=== PATIENT | male | born 1990 | race African-American/Black ===

== ENCOUNTER 2018-02-09 08:55 | Emergency (ER) | payer OTHER ==
[~2018-02-09] VITALS: Ht 172.7 cm; Wt 81.1 kg
[2018-02-09 09:00] VITALS: TEMP 36.9; Ht 172.7 cm; Wt 81.1 kg
[2018-02-09] MEDS ORDERED: IBUP-103 PO (09:11)
--- NOTE | 2018-02-09 10:14 | DIAGNOSTIC IMAGING REPORT ---
R KNEE 3 VIEWS CLINICAL HISTORY: Bilateral knee pain. COMPARISON: None FINDINGS: Alignment of the right knee is anatomic. There is no acute fracture or suspicious lesion. There is minimal spurring of the superior patella at the insertion of the quadriceps. There is no joint effusion. IMPRESSION: 1. No acute fracture or joint effusion of the right knee. 2. Minimal superior patellar spurring at the insertion of the quadriceps. Electronically signed by: Jose A Villegas M.D. 02/09/2018 10:13 AM Dictated Date/Time: 02/09/2018 10:12 AM
--- NOTE | 2018-02-09 10:15 | DIAGNOSTIC IMAGING REPORT ---
L KNEE 3 VIEWS CLINICAL HISTORY: Bilateral knee pain. COMPARISON: None FINDINGS: Alignment of the left knee is anatomic. There is no fracture or suspicious lesion. The joint spaces are preserved. There is minimal osteophytosis of the left knee and minimal superior patellar spurring at the insertion of the quadriceps. No joint effusion is present. IMPRESSION: 1. No acute fracture. 2. Preserved joint spaces left knee with minimal medial compartment osteophytosis. Electronically signed by: Jose A Villegas M.D. 02/09/2018 10:14 AM Dictated Date/Time: 02/09/2018 10:13 AM
[2018-02-09 10:34] VITALS: BP 149/73; PULSE 74; O2SAT 100
--- NOTE | 2018-02-09 15:35 | EMERGENCY ROOM VISIT NOTE ---
History First contact with patient: 09:08 Chief Complaint: KNEEPAIN Stated Complaint: KNEE HURTS History of Present Illness The patient is a 27 year old male who presents to the Emergency Room with complaints of bilateral knee pain. She reports the pain is mostly over the inner aspect of both knees. 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 The patient reports that he does spend a lot of time kneeling, squatting and crawling on his knees. The patient reports that he was seen by a PCP in the past that diagnosed him with tendinitis. He denies any specific injuries to his knees in the past. He rates his discomfort a 6 out of 10. He denies any instability, clicking or locking of the knees. Review of Systems 10 system review was performed and was negative except for pertinent positives and negatives as indicated in history of present illness Past Medical/Surgical History Medical Problems: (1) Asthma (2) Pain, dental Family History FH: cancer FH: diabetes mellitus FH: heart disease FH: hypertension FH: kidney disease Social History Smoking Status: Current Every Day Smoker Alcohol Use: occasionally Marital Status: Occupation Status: employed Current/Historical Medications Scheduled Ibuprofen Tab (Advil), 400-600 MG PO Q6H Physical Exam Vital Signs Date Time Temp Pulse Resp B/P (MAP) Pulse Ox O2 Delivery O2 Flow Rate FiO2 02/09/18 10:34 74 18 149/73 100 Room Air 02/09/18 09:00 36.9 93 18 129/80 98 Room Air Physical Exam CONSTITUTIONAL: Healthy and well nourished. Alert and oriented X 3 with positive affect. Patient does not appear in any acute distress. HEENT: Normocephalic, atraumatic. Pupils equal, round and reactive. NECK: Full active range of motion without discomfort. MUSCULOSKELETAL: Examination of bilateral knees does not show any areas of edema , ecchymosis or skin conditions. The patient has tenderness to palpation over bilateral pedis anserine regions, and through the posterior hamstrings. The patient has no focal tenderness to palpation over the medial or lateral joint line, peripatellar region, quadriceps/patellar tendons or popliteal space. No joint effusion noted. The patient has full active flexion and extension without discomfort. Ligamentous exam is normal. Pedal pulses are intact. INTEGUMENTARY: No rash or other significant dermatologic conditions noted. NEUROLOGIC: No focal neurologic deficits noted. Medical Decision & Procedures ER Provider Diagnostic Interpretation: My interpretation of bilateral knee x-rays shows mild degenerative changes as discussed below, otherwise no other acute fractures, dislocation or joint effusion. Radiologist reports are as follows: L KNEE 3 VIEWS CLINICAL HISTORY: Bilateral knee pain. COMPARISON: None FINDINGS: Alignment of the left knee is anatomic. There is no fracture or suspicious lesion. The joint spaces are preserved. There is minimal osteophytosis of the left knee and minimal superior patellar spurring at the insertion of the quadriceps. No joint effusion is present. IMPRESSION: 1. No acute fracture. 2. Preserved joint spaces left knee with minimal medial compartment osteophytosis. R KNEE 3 VIEWS CLINICAL HISTORY: Bilateral knee pain. COMPARISON: None FINDINGS: Alignment of the right knee is anatomic. There is no acute fracture or suspicious lesion. There is minimal spurring of the superior patella at the insertion of the quadriceps. There is no joint effusion. IMPRESSION: 1. No acute fracture or joint effusion of the right knee. 2. Minimal superior patellar spurring at the insertion of the quadriceps. ED Course Patient history and physical exam were performed. Nurse's notes were reviewed. Vital signs were reviewed and were normal. The patient refused any analgesics. X-rays of bilateral knees were normal. The patient was advised that his clinical exams are consistent with bilateral knee tendinitis. He was encouraged to intermittently apply ice to areas of discomfort. The patient refused crutches. He was encouraged to follow-up with his PCP or orthopedics for further reevaluation and management. The patient was happy with plan of care, voiced understanding of all discharge instructions, and rated his discomfort a 4 out of 10 at the conclusion of my exam. Medical Decision Medication Reconcilliation Current Medication List: was personally reviewed by me Blood Pressure Screening Patient's blood pressure: Normal blood pressure Impression Primary Impression: Bilateral knee tendinitis Departure Information Referrals No Doctor, Assigned (PCP) Patient Instructions My [facility]
== END 2018-02-09 10:46 | disposition home or self-care (01) ==
LOC: C.EDB 08:56
DX: M76.891 Other specified enthesopathies of right lower limb, excluding foot (principal); M76.892 Other specified enthesopathies of left lower limb, excluding foot; J45.909 Unspecified asthma, uncomplicated; F17.200 Nicotine dependence, unspecified, uncomplicated; Z83.3 Family history of diabetes mellitus; Z82.49 Family history of ischemic heart disease and other diseases of the circulatory system; Z84.1 Family history of disorders of kidney and ureter